=== PATIENT | female | born 1950 | race Two or more races ===

== ENCOUNTER 2019-08-02 09:53 | Inpatient (IN) | payer OTHER ==
[~2019-08-02] VITALS: Ht 157.5 cm; Wt 66.6 kg
[2019-08-02 10:55] LABS: Basophils # (auto) 0.1 10 ^3/uL (0-0.2); Basophils % (auto) 0.7 % (0.0-2.0); Eosinophils # (auto) 0.3 10 ^3/uL (0-0.8); Eosinophils % (auto) 3.9 % (0.0-7.0); Hematocrit 48.4 % (36.0-46.0); Hemoglobin 15.9 g/dL (12.2-16.2); Lymphocytes % (auto) 23.6 % (10.0-50.0); Mean Corpuscular Hemoglobin 28.4 pg (28.0-32.0); Mean Corpuscular Hgb Conc. 32.9 g/dL (32.0-36.0); Mean Corpuscular Volume 86.4 fL (80.0-100.0); Monocytes # (auto) 0.6 10 ^3/uL (0-1.3); Monocytes % (auto) 7.2 % (0.0-12.0); Neutrophils # (auto) 5.6 10 ^3/uL (1.6-8.6); Neutrophils % (auto) 64.6 % (37.0-80.0); Nucleated Red Blood Cells % 0.1 %; Platelet Count (auto) 266 10^3/uL (140-450); Red Cell Distribution Width 15.9 % (11.8-14.3); White Blood Cell 8.6 10^3/uL (4.4-10.8)
[2019-08-02 11:37] LABS: Albumin 3.8 g/dL (3.4-5.0); Anion Gap 8 (5-15); Calcium 9.1 mg/dL (8.5-10.1); Carbon Dioxide 24 mmol/L (21-32); Chloride 110 mmol/L (98-107); GFR African American 58 mL/min; GFR Non-African American 48 mL/min; Glucose 115 mg/dL (74-106); Magnesium 2.3 mg/dL (1.6-2.6); Potassium 3.6 mmol/L (3.5-5.1); Sodium 142 mmol/L (136-145)
[2019-08-02 12:02] LABS: Alanine Aminotransferase 15 U/L (13-56); Alkaline Phosphatase 86 U/L (45-117); Aspartate Aminotransferase 13 U/L (15-37); BUN/Creatinine Ratio 19.3; Blood Urea Nitrogen 23 mg/dL (7-18); Total Protein 8.1 g/dL (6.4-8.2)
[2019-08-02] MEDS ORDERED: SODIUM CHLORIDE 0.9% 1,000 ML IVB ONE (13:02)
[2019-08-02] MEDS ORDERED: ONDANSETRON HCL 4 MG/2 ML VIAL IV ONE (13:15)
[2019-08-02 13:37] LABS: Amylase 129 U/L (25-115); Lipase 69 U/L (73-393)
[2019-08-02] MEDS ORDERED: cefTRIAXone 1GM/50ML D5W 50 ML IV ONE (18:30)
[2019-08-02] MEDS ORDERED: NITROGLYCERIN 0.4 MG SL TAB SL PRN ×2 (18:45→21:00)
[2019-08-02] MEDS ORDERED: MORPHINE SULF INJ 2 MG/ML SYRINGE 1ML IV PRN ×2 (18:45→21:00)
[2019-08-02 19:05] LABS: Urine Bacteria MANY /hpf (None Seen); Urine Blood TRACE /uL (Negative); Urine Hyaline Cast MANY /lpf (0 - 2); Urine Mucus MODERATE (None Seen); Urine Specific Gravity 1.024 (1.001-1.035); Urine WBC 79 /hpf (0 - 5)
[2019-08-02] MEDS: D5W/SOD CHLO 0.9% 1,000 ML IV SCH (20:40)
[2019-08-02 20:50] VITALS: BP 119/69
[2019-08-02] MEDS ORDERED: ALUM & MAG HYDROX-SIMETH LIQ(MAALOX) 30 ML PO PRN (21:00)
[2019-08-02] MEDS ORDERED: LORazepam 0.5 MG TAB PO PRN (21:00)
[2019-08-02] MEDS ORDERED: DOCUSATE SOD 100 MG CAP PO PRN (21:00)
[2019-08-02] MEDS ORDERED: PANTOPRAZOLE 40 MG/10 ML VIAL INJ IV ONE (21:00)
[2019-08-02] MEDS: PANCREATIC ENZYMES 4200 UNIT CAP PO ONE (21:00)
[2019-08-02 21:15] LABS: Cholesterol 169 mg/dL (< 200)
[2019-08-02 21:18] LABS: HDL Cholesterol 41 mg/dL (40-59); LDL Cholesterol 126 mg/dL (< 100); Triglycerides 116 mg/dL (< 150)
[2019-08-02] MEDS ORDERED: PREG75CA PO (21:34)
[2019-08-02] MEDS ORDERED: LEV100T PO (21:34)
[2019-08-02] MEDS ORDERED: LISI-275 PO (21:34)
[2019-08-02] MEDS ORDERED: OME20T PO (21:34)
[2019-08-02] MEDS: MORPHINE SULF INJ 2 MG/ML SYRINGE 1ML IV PRN (21:37)
[2019-08-02 22:00] VITALS: BP 109/66
[2019-08-02] MEDS ORDERED: PNEUMOCOCCAL VACC POLYS 25 MCG/0.5 ML VIAL IM ONE (22:00)
[2019-08-02] MEDS: HYDROcodone-ACET 5/325MG TAB PO PRN (23:28)
[2019-08-03] MEDS: MORPHINE SULF INJ 2 MG/ML SYRINGE 1ML IV PRN ×4 (04:55→19:37)
[2019-08-03 05:00] VITALS: BP 106/57
[2019-08-03] MEDS: PANCREATIC ENZYMES 4200 UNIT CAP PO ONE (05:01)
[2019-08-03] MEDS: LEVOTHYROXINE SODIUM 100 MCG TAB PO SCH (05:02)
[2019-08-03 06:22] LABS: Basophils # (auto) 0 10 ^3/uL (0-0.2); Basophils % (auto) 0.6 % (0.0-2.0); Eosinophils # (auto) 0.6 10 ^3/uL (0-0.8); Eosinophils % (auto) 9.4 % (0.0-7.0); Hematocrit 41.3 % (36.0-46.0); Hemoglobin 13.7 g/dL (12.2-16.2); Lymphocytes # (auto) 2.5 10 ^3/uL (0.4-5.4); Lymphocytes % (auto) 37.6 % (10.0-50.0); Mean Corpuscular Hemoglobin 28.7 pg (28.0-32.0); Mean Corpuscular Hgb Conc. 33.1 g/dL (32.0-36.0); Mean Corpuscular Volume 86.8 fL (80.0-100.0); Monocytes # (auto) 0.6 10 ^3/uL (0-1.3); Monocytes % (auto) 9.2 % (0.0-12.0); Neutrophils # (auto) 2.8 10 ^3/uL (1.6-8.6); Neutrophils % (auto) 43.2 % (37.0-80.0); Nucleated Red Blood Cells % 0.2 %; Platelet Count (auto) 210 10^3/uL (140-450); Red Blood Cells 4.75 10^6/uL (4.0-5.20); Red Cell Distribution Width 15.7 % (11.8-14.3); White Blood Cell 6.6 10^3/uL (4.4-10.8)
[2019-08-03 06:44] LABS: INR 1.17 (0.9-1.15); Potassium 3.9 mmol/L (3.5-5.1)
[2019-08-03 06:59] LABS: BUN/Creatinine Ratio 21.4; Bilirubin, Total 0.5 mg/dL (0.2-1.0); Calcium 8.2 mg/dL (8.5-10.1); Magnesium 2.3 mg/dL (1.6-2.6); Phosphorus 4.1 mg/dL (2.5-4.90); Total Protein 6.3 g/dL (6.4-8.2)
[2019-08-03] MEDS: PANCREATIC ENZYMES 4200 UNIT CAP PO SCH ×3 (08:00→17:48)
[2019-08-03] MEDS: D5W/SOD CHLO 0.9% 1,000 ML IV SCH ×2 (08:35→21:11)
[2019-08-03 09:00] VITALS: BP 103/58
[2019-08-03] MEDS: LISINOPRIL 5 MG TAB PO SCH (10:00)
[2019-08-03] MEDS: ENOXAPARIN SOD 40 MG/0.4 ML SYRINGE SC SCH (10:14)
[2019-08-03] MEDS: PANTOPRAZOLE 40 MG/10 ML VIAL INJ IV SCH (10:14)
[2019-08-03] MEDS: PREGABALIN CAPSULE 75 MG CAP PO SCH ×2 (10:14→21:10)
[2019-08-03] MEDS ORDERED: cefTRIAXone 1GM/50ML D5W 50 ML IV ONE (12:00)
[2019-08-03 13:00] VITALS: BP 100/62
[2019-08-03] MEDS: metroNIDAZOLE 500MG/100ML 100 ML IV SCH ×2 (13:51→21:10)
[2019-08-03] MEDS ORDERED: HYDR-531 PO (14:22)
[2019-08-03 17:00] VITALS: BP 111/63
[2019-08-03] MEDS: ATORVASTATIN 20 MG TAB PO SCH (21:10)
[2019-08-03] MEDS: HYDROcodone-ACET 5/325MG TAB PO PRN (21:11)
[2019-08-03 22:34] VITALS: BP 99/68
[2019-08-04 05:14] VITALS: BP 103/71
[2019-08-04] MEDS: LEVOTHYROXINE SODIUM 100 MCG TAB PO SCH (05:43)
[2019-08-04] MEDS: metroNIDAZOLE 500MG/100ML 100 ML IV SCH ×3 (05:43→22:00)
[2019-08-04] MEDS: MORPHINE SULF INJ 2 MG/ML SYRINGE 1ML IV PRN ×2 (05:44)
[2019-08-04] MEDS: PANCREATIC ENZYMES 4200 UNIT CAP PO SCH ×3 (08:00→18:16)
[2019-08-04 09:00] VITALS: BP 111/58
[2019-08-04] MEDS: PREGABALIN CAPSULE 75 MG CAP PO SCH ×2 (09:49→23:22)
[2019-08-04] MEDS: cefTRIAXone 1GM/50ML D5W 50 ML IV SCH (09:49)
[2019-08-04] MEDS: PANTOPRAZOLE 40 MG/10 ML VIAL INJ IV SCH (09:49)
[2019-08-04] MEDS: LISINOPRIL 5 MG TAB PO SCH (09:58)
[2019-08-04] MEDS: ENOXAPARIN SOD 40 MG/0.4 ML SYRINGE SC SCH (09:59)
[2019-08-04] MEDS: D5W/SOD CHLO 0.9% 1,000 ML IV SCH (09:59)
[2019-08-04] MEDS: HYDROcodone-ACET 5/325MG TAB PO PRN ×2 (12:41→23:36)
[2019-08-04 13:00] VITALS: BP 115/58
[2019-08-04] MEDS: KETOROLAC TROMETH 30 MG/ML 1ML VIAL IV PRN (16:10)
[2019-08-04 17:00] VITALS: BP_SYST 111; BP_SYST 93; BP_DIAS 43; BP_DIAS 58
[2019-08-04 22:00] VITALS: BP 106/67
[2019-08-04] MEDS: ATORVASTATIN 20 MG TAB PO SCH (22:00)
[2019-08-05] MEDS: HYDROcodone-ACET 5/325MG TAB PO PRN ×5 (03:23→20:33)
[2019-08-05 05:00] VITALS: BP 111/55
[2019-08-05] MEDS: metroNIDAZOLE 500MG/100ML 100 ML IV SCH ×3 (06:00→22:00)
[2019-08-05] MEDS: LEVOTHYROXINE SODIUM 100 MCG TAB PO SCH (06:27)
[2019-08-05] MEDS: cefTRIAXone 1GM/50ML D5W 50 ML IV SCH (08:13)
[2019-08-05] MEDS: KETOROLAC TROMETH 30 MG/ML 1ML VIAL IV PRN (08:14)
[2019-08-05] MEDS: PANCREATIC ENZYMES 4200 UNIT CAP PO SCH ×3 (08:14→17:52)
[2019-08-05 09:00] VITALS: BP 102/46
[2019-08-05] MEDS: LISINOPRIL 5 MG TAB PO SCH (10:00)
[2019-08-05] MEDS: PREGABALIN CAPSULE 75 MG CAP PO SCH ×2 (10:16→22:00)
[2019-08-05] MEDS: PANTOPRAZOLE 40 MG/10 ML VIAL INJ IV SCH (10:16)
[2019-08-05] MEDS: ENOXAPARIN SOD 40 MG/0.4 ML SYRINGE SC SCH (10:17)
[2019-08-05] MEDS: D5W/SOD CHLO 0.9% 1,000 ML IV SCH (12:58)
[2019-08-05 13:00] VITALS: BP 111/49
[2019-08-05 17:38] VITALS: BP 147/59
[2019-08-05 22:00] VITALS: BP 122/66
[2019-08-05] MEDS: ATORVASTATIN 20 MG TAB PO SCH (22:00)
[2019-08-06] MEDS: HYDROcodone-ACET 5/325MG TAB PO PRN ×3 (00:59→06:33)
[2019-08-06] MEDS: D5W/SOD CHLO 0.9% 1,000 ML IV SCH ×3 (03:15→21:27)
[2019-08-06 05:38] VITALS: BP 131/59
[2019-08-06] MEDS: metroNIDAZOLE 500MG/100ML 100 ML IV SCH ×3 (06:00→21:26)
[2019-08-06] MEDS: LEVOTHYROXINE SODIUM 100 MCG TAB PO SCH (06:32)
[2019-08-06] MEDS: PANCREATIC ENZYMES 4200 UNIT CAP PO SCH ×3 (08:20→17:58)
[2019-08-06] MEDS: cefTRIAXone 1GM/50ML D5W 50 ML IV SCH (08:30)
[2019-08-06 09:00] VITALS: BP 124/68
[2019-08-06] MEDS: PANTOPRAZOLE 40 MG/10 ML VIAL INJ IV SCH (09:53)
[2019-08-06] MEDS: KETOROLAC TROMETH 30 MG/ML 1ML VIAL IV PRN ×2 (09:53→20:14)
[2019-08-06] MEDS: LISINOPRIL 5 MG TAB PO SCH (09:54)
[2019-08-06] MEDS: PREGABALIN CAPSULE 75 MG CAP PO SCH ×2 (09:54→21:27)
[2019-08-06] MEDS: ENOXAPARIN SOD 40 MG/0.4 ML SYRINGE SC SCH ×2 (09:54→10:00)
[2019-08-06 13:00] VITALS: BP 122/72
[2019-08-06 17:00] VITALS: BP 133/70
[2019-08-06 21:19] LABS: Basophils # (auto) 0 10 ^3/uL (0-0.2); Basophils % (auto) 0.8 % (0.0-2.0); Eosinophils # (auto) 0.4 10 ^3/uL (0-0.8); Eosinophils % (auto) 6.6 % (0.0-7.0); Hematocrit 39.3 % (36.0-46.0); Hemoglobin 12.6 g/dL (12.2-16.2); Lymphocytes # (auto) 1.4 10 ^3/uL (0.4-5.4); Lymphocytes % (auto) 23.9 % (10.0-50.0); Mean Corpuscular Hemoglobin 28.6 pg (28.0-32.0); Mean Corpuscular Hgb Conc. 32.1 g/dL (32.0-36.0); Mean Corpuscular Volume 88.9 fL (80.0-100.0); Monocytes # (auto) 0.6 10 ^3/uL (0-1.3); Monocytes % (auto) 10.8 % (0.0-12.0); Neutrophils # (auto) 3.3 10 ^3/uL (1.6-8.6); Neutrophils % (auto) 57.9 % (37.0-80.0); Nucleated Red Blood Cells % 0.1 %; Platelet Count (auto) 164 10^3/uL (140-450); Red Blood Cells 4.42 10^6/uL (4.0-5.20); Red Cell Distribution Width 16.7 % (11.8-14.3); White Blood Cell 5.7 10^3/uL (4.4-10.8)
[2019-08-06] MEDS: ATORVASTATIN 20 MG TAB PO SCH (21:27)
[2019-08-06 21:34] LABS: INR 1.34 (0.9-1.15); Partial Thromboplastin Time 31.6 sec (23.64-32.05)
[2019-08-06 21:42] LABS: BUN/Creatinine Ratio 9.1; Calcium 7.6 mg/dL (8.5-10.1)
[2019-08-06 21:59] LABS: Potassium 2.4 mmol/L (3.5-5.1)
[2019-08-06 22:00] VITALS: BP 142/87
[2019-08-06 23:02] LABS: BUN/Creatinine Ratio 8.2; Calcium 7.6 mg/dL (8.5-10.1); Potassium 4.9 mmol/L (3.5-5.1)
[2019-08-07 05:00] VITALS: BP 140/72
[2019-08-07] MEDS: metroNIDAZOLE 500MG/100ML 100 ML IV SCH ×3 (05:00→22:05)
[2019-08-07] MEDS: MORPHINE SULF INJ 2 MG/ML SYRINGE 1ML IV PRN (05:00)
[2019-08-07] MEDS: LEVOTHYROXINE SODIUM 100 MCG TAB PO SCH (06:09)
[2019-08-07] MEDS ORDERED: IOHEXOL 300 MG/ML 100ML BOTTLE IJ ONE (07:03)
[2019-08-07] MEDS ORDERED: LIDOCAINE 1% HCL (LOCAL ANESTH.) INJ 20ML MDV ONE (07:42)
[2019-08-07] MEDS ORDERED: SUCCINYLCHOLINE CHLORIDE 20 MG/ML 10ML VIAL IV ONE (07:43)
[2019-08-07] MEDS ORDERED: MIDAZOLAM HCL 1MG/1ML-2 ML VIAL ONE (07:45)
[2019-08-07] MEDS ORDERED: PROPOFOL 10 MG/ML 20 ML IV ONE ×3 (07:46→08:18)
[2019-08-07] MEDS ORDERED: METOCLOPRAMIDE HCL 5MG/ml INJ 2ml VIAL ONE (07:51)
[2019-08-07] MEDS ORDERED: GLYCOPYRROLATE 0.2 MG/ML 1ML VIAL ONE (07:51)
[2019-08-07] MEDS ORDERED: diphenhdrAMINE HCL 50 MG/1 ML VL ONE (07:51)
[2019-08-07] MEDS ORDERED: ESMOLOL HCL 10 ML IV ONE (07:57)
[2019-08-07] MEDS: PANCREATIC ENZYMES 4200 UNIT CAP PO SCH ×3 (08:00→18:12)
[2019-08-07] MEDS ORDERED: HYDROmorphone HCL 2 MG/ML VL IV PRN ×2 (08:15)
[2019-08-07] MEDS ORDERED: ONDANSETRON HCL 4 MG/2 ML VIAL IV PRN (08:15)
[2019-08-07] MEDS ORDERED: NALOXONE HCL 0.4 MG/ML VIAL IV PRN (08:15)
[2019-08-07 09:20] VITALS: BP 133/98
[2019-08-07] MEDS: cefTRIAXone 1GM/50ML D5W 50 ML IV SCH (10:28)
[2019-08-07] MEDS: PANTOPRAZOLE 40 MG/10 ML VIAL INJ IV SCH (10:28)
[2019-08-07] MEDS: ENOXAPARIN SOD 40 MG/0.4 ML SYRINGE SC SCH (10:29)
[2019-08-07] MEDS: LISINOPRIL 5 MG TAB PO SCH (10:29)
[2019-08-07] MEDS: PREGABALIN CAPSULE 75 MG CAP PO SCH ×2 (12:04→22:06)
[2019-08-07 13:00] VITALS: BP 148/101
[2019-08-07 17:00] VITALS: BP 159/85
[2019-08-07] MEDS: KETOROLAC TROMETH 30 MG/ML 1ML VIAL IV PRN (18:21)
[2019-08-07] MEDS: D5W/SOD CHLO 0.9% 1,000 ML IV SCH (18:49)
[2019-08-07 22:00] VITALS: BP 121/59
[2019-08-07] MEDS: ATORVASTATIN 20 MG TAB PO SCH (22:05)
[2019-08-08 05:20] VITALS: BP 125/72
[2019-08-08 06:07] LABS: Basophils # (auto) 0 10 ^3/uL (0-0.2); Basophils % (auto) 0.5 % (0.0-2.0); Eosinophils # (auto) 0.3 10 ^3/uL (0-0.8); Eosinophils % (auto) 4.1 % (0.0-7.0); Hematocrit 37.8 % (36.0-46.0); Hemoglobin 12.5 g/dL (12.2-16.2); Lymphocytes # (auto) 1.4 10 ^3/uL (0.4-5.4); Lymphocytes % (auto) 19.7 % (10.0-50.0); Mean Corpuscular Hemoglobin 28.5 pg (28.0-32.0); Mean Corpuscular Hgb Conc. 33.1 g/dL (32.0-36.0); Mean Corpuscular Volume 86.2 fL (80.0-100.0); Monocytes # (auto) 0.6 10 ^3/uL (0-1.3); Monocytes % (auto) 8.1 % (0.0-12.0); Neutrophils % (auto) 67.6 % (37.0-80.0); Nucleated Red Blood Cells % 0.1 %; Platelet Count (auto) 188 10^3/uL (140-450); Red Blood Cells 4.39 10^6/uL (4.0-5.20); Red Cell Distribution Width 16.2 % (11.8-14.3); White Blood Cell 7.4 10^3/uL (4.4-10.8)
[2019-08-08] MEDS: LEVOTHYROXINE SODIUM 100 MCG TAB PO SCH (06:20)
[2019-08-08] MEDS: metroNIDAZOLE 500MG/100ML 100 ML IV SCH ×3 (06:20→21:31)
[2019-08-08 06:38] LABS: Bilirubin, Total 0.4 mg/dL (0.2-1.0)
[2019-08-08] MEDS: D5W/SOD CHLO 0.9% 1,000 ML IV SCH (08:35)
[2019-08-08] MEDS: PANCREATIC ENZYMES 4200 UNIT CAP PO SCH ×3 (08:43→17:47)
[2019-08-08 08:59] VITALS: BP 123/78
[2019-08-08] MEDS: LISINOPRIL 5 MG TAB PO SCH (10:03)
[2019-08-08] MEDS: cefTRIAXone 1GM/50ML D5W 50 ML IV SCH (10:03)
[2019-08-08] MEDS: ENOXAPARIN SOD 40 MG/0.4 ML SYRINGE SC SCH (10:04)
[2019-08-08] MEDS: PANTOPRAZOLE 40 MG/10 ML VIAL INJ IV SCH (10:04)
[2019-08-08] MEDS: PREGABALIN CAPSULE 75 MG CAP PO SCH ×2 (10:05→21:31)
[2019-08-08] MEDS: KETOROLAC TROMETH 30 MG/ML 1ML VIAL IV PRN ×2 (10:05→21:32)
[2019-08-08] MEDS: SODIUM CHLORIDE 0.9% 1,000 ML IV SCH ×2 (12:40→20:40)
[2019-08-08 13:00] VITALS: BP 125/70
[2019-08-08 17:00] VITALS: BP 131/71
[2019-08-08] MEDS: ATORVASTATIN 20 MG TAB PO SCH (21:31)
[2019-08-08 22:00] VITALS: BP 131/78
[2019-08-09 05:52] VITALS: BP 148/76
[2019-08-09] MEDS: SODIUM CHLORIDE 0.9% 1,000 ML IV SCH ×3 (06:06→21:44)
[2019-08-09] MEDS: metroNIDAZOLE 500MG/100ML 100 ML IV SCH ×3 (06:06→21:44)
[2019-08-09] MEDS: LEVOTHYROXINE SODIUM 100 MCG TAB PO SCH (06:07)
[2019-08-09 06:12] LABS: Basophils # (auto) 0 10 ^3/uL (0-0.2); Basophils % (auto) 0.5 % (0.0-2.0); Eosinophils # (auto) 0.4 10 ^3/uL (0-0.8); Eosinophils % (auto) 7.7 % (0.0-7.0); Hematocrit 38.3 % (36.0-46.0); Hemoglobin 12.8 g/dL (12.2-16.2); Lymphocytes # (auto) 1.7 10 ^3/uL (0.4-5.4); Lymphocytes % (auto) 30.8 % (10.0-50.0); Mean Corpuscular Hemoglobin 28.9 pg (28.0-32.0); Mean Corpuscular Hgb Conc. 33.4 g/dL (32.0-36.0); Mean Corpuscular Volume 86.4 fL (80.0-100.0); Monocytes # (auto) 0.5 10 ^3/uL (0-1.3); Monocytes % (auto) 9.7 % (0.0-12.0); Neutrophils # (auto) 2.8 10 ^3/uL (1.6-8.6); Neutrophils % (auto) 51.3 % (37.0-80.0); Platelet Count (auto) 191 10^3/uL (140-450); Red Blood Cells 4.44 10^6/uL (4.0-5.20); Red Cell Distribution Width 16.2 % (11.8-14.3); White Blood Cell 5.5 10^3/uL (4.4-10.8)
[2019-08-09 06:31] LABS: Albumin 2.4 g/dL (3.4-5.0); Potassium 3.8 mmol/L (3.5-5.1)
[2019-08-09 06:39] LABS: BUN/Creatinine Ratio 6.3; Bilirubin, Total 0.4 mg/dL (0.2-1.0); Total Protein 5.3 g/dL (6.4-8.2)
[2019-08-09] MEDS ORDERED: POVIDONE IODINE 10 % TOPICAL OINT 30GM TOP ONE (06:59)
[2019-08-09] MEDS: PANCREATIC ENZYMES 4200 UNIT CAP PO SCH ×3 (08:00→17:49)
[2019-08-09] MEDS ORDERED: ETOMIDATE (2MG/ML) 20ML VIAL IV ONE (08:05)
[2019-08-09] MEDS ORDERED: ROCURONIUM 10MG/ML 10ML VIAL IV ONE (08:05)
[2019-08-09] MEDS ORDERED: LIDOCAINE 2% (LOCAL ANESTH.) PF 5ml SDV ONE (08:05)
[2019-08-09] MEDS ORDERED: ceFAZolin 1GM/50ML 50 ML IV ONE (08:22)
[2019-08-09 09:00] VITALS: BP 139/71
[2019-08-09] MEDS ORDERED: SUCCINYLCHOLINE CHLORIDE 20 MG/ML 10ML VIAL IV ONE (09:10)
[2019-08-09] MEDS ORDERED: MIDAZOLAM HCL 1MG/1ML-2 ML VIAL ONE ×2 (09:19→09:24)
[2019-08-09] MEDS: PANTOPRAZOLE 40 MG/10 ML VIAL INJ IV SCH (11:28)
[2019-08-09] MEDS: PREGABALIN CAPSULE 75 MG CAP PO SCH ×2 (11:28→21:44)
[2019-08-09] MEDS: cefTRIAXone 1GM/50ML D5W 50 ML IV SCH (11:28)
[2019-08-09] MEDS: LISINOPRIL 5 MG TAB PO SCH (11:29)
[2019-08-09] MEDS: ENOXAPARIN SOD 40 MG/0.4 ML SYRINGE SC SCH (11:29)
[2019-08-09 13:00] VITALS: BP 156/85
[2019-08-09] MEDS: ONDANSETRON HCL 4 MG/2 ML VIAL IV PRN ×3 (13:30→21:45)
[2019-08-09] MEDS: MAGNESIUM SULFATE 1GM/100ML 100 ML IV SCH ×2 (15:00→17:18)
[2019-08-09 16:42] VITALS: BP 150/70
[2019-08-09] MEDS ORDERED: SODIUM CHLORIDE 0.9% 500 ML IV ONE (18:45)
[2019-08-09] MEDS ORDERED: MAGNESIUM SULFATE 1GM/100ML 100 ML IV SCH (19:00)
[2019-08-09] MEDS ORDERED: DIGOXIN (250MCG/ML) 2 ML AMPULE IV ONE ×2 (19:30→20:15)
[2019-08-09] MEDS ORDERED: AMIODARONE HCL 200 MG TAB ONE (19:34)
[2019-08-09] MEDS ORDERED: DIGOXIN (250MCG/ML) 2 ML AMPULE ONE (19:35)
[2019-08-09] MEDS: ATORVASTATIN 20 MG TAB PO SCH (21:44)
[2019-08-09] MEDS: MORPHINE SULF INJ 2 MG/ML SYRINGE 1ML IV PRN (21:45)
[2019-08-09 22:00] VITALS: BP 145/71
[2019-08-09] MEDS ORDERED: AMIODARONE HCL 200 MG TAB PO SCH (22:00)
[2019-08-10] MEDS: ONDANSETRON HCL 4 MG/2 ML VIAL IV PRN ×3 (02:49→15:02)
[2019-08-10] MEDS: MORPHINE SULF INJ 2 MG/ML SYRINGE 1ML IV PRN ×3 (02:50→15:02)
[2019-08-10 05:00] VITALS: BP 121/78
[2019-08-10] MEDS: metroNIDAZOLE 500MG/100ML 100 ML IV SCH ×3 (06:38→21:32)
[2019-08-10] MEDS: LEVOTHYROXINE SODIUM 100 MCG TAB PO SCH (06:38)
[2019-08-10] MEDS: SODIUM CHLORIDE 0.9% 1,000 ML IV SCH ×3 (06:38→21:32)
[2019-08-10] MEDS: ACETAMINOPHEN 325 MG TAB PO PRN ×2 (06:39→16:02)
[2019-08-10 07:08] LABS: Basophils # (auto) 0 10 ^3/uL (0-0.2); Basophils % (auto) 0.3 % (0.0-2.0); Eosinophils # (auto) 0.2 10 ^3/uL (0-0.8); Hematocrit 36.5 % (36.0-46.0); Hemoglobin 12.2 g/dL (12.2-16.2); Lymphocytes # (auto) 1.4 10 ^3/uL (0.4-5.4); Lymphocytes % (auto) 17.6 % (10.0-50.0); Mean Corpuscular Hemoglobin 29.2 pg (28.0-32.0); Mean Corpuscular Hgb Conc. 33.5 g/dL (32.0-36.0); Mean Corpuscular Volume 87.1 fL (80.0-100.0); Monocytes # (auto) 0.6 10 ^3/uL (0-1.3); Monocytes % (auto) 7.1 % (0.0-12.0); Neutrophils # (auto) 5.6 10 ^3/uL (1.6-8.6); Nucleated Red Blood Cells % 0.1 %; Platelet Count (auto) 196 10^3/uL (140-450); Red Blood Cells 4.19 10^6/uL (4.0-5.20); Red Cell Distribution Width 16.7 % (11.8-14.3); White Blood Cell 7.7 10^3/uL (4.4-10.8)
[2019-08-10 07:32] LABS: Albumin 2.3 g/dL (3.4-5.0); Calcium 7.4 mg/dL (8.5-10.1); Potassium 3.5 mmol/L (3.5-5.1)
[2019-08-10 07:37] LABS: BUN/Creatinine Ratio 7.4; Bilirubin, Total 0.3 mg/dL (0.2-1.0); Total Protein 5.1 g/dL (6.4-8.2)
[2019-08-10] MEDS: PANCREATIC ENZYMES 4200 UNIT CAP PO SCH ×3 (08:00→17:59)
[2019-08-10] MEDS ORDERED: ADENOSINE 56 MG in GIVE UN-DILUTED 0 ML IV STA (08:12)
[2019-08-10 09:00] VITALS: BP 110/59
[2019-08-10] MEDS: LISINOPRIL 5 MG TAB PO SCH (10:00)
[2019-08-10] MEDS: cefTRIAXone 1GM/50ML D5W 50 ML IV SCH (11:26)
[2019-08-10] MEDS: PREGABALIN CAPSULE 75 MG CAP PO SCH ×2 (11:27→21:32)
[2019-08-10] MEDS: PANTOPRAZOLE 40 MG/10 ML VIAL INJ IV SCH (11:27)
[2019-08-10] MEDS: ENOXAPARIN SOD 40 MG/0.4 ML SYRINGE SC SCH (11:27)
[2019-08-10 13:00] VITALS: BP 119/69
[2019-08-10] MEDS ORDERED: IBUPROFEN 600 MG TAB PO PRN (16:15)
[2019-08-10 16:52] VITALS: BP 126/68
[2019-08-10] MEDS: ATORVASTATIN 20 MG TAB PO SCH (21:32)
[2019-08-10] MEDS: HYDROcodone-ACET 5/325MG TAB PO PRN (21:52)
[2019-08-10 22:00] VITALS: BP 123/55
[2019-08-11] MEDS: HYDROcodone-ACET 5/325MG TAB PO PRN (03:28)
[2019-08-11 05:00] VITALS: BP 98/50
[2019-08-11] MEDS: SODIUM CHLORIDE 0.9% 1,000 ML IV SCH ×3 (05:45→21:52)
[2019-08-11] MEDS: LEVOTHYROXINE SODIUM 100 MCG TAB PO SCH (05:45)
[2019-08-11] MEDS: metroNIDAZOLE 500MG/100ML 100 ML IV SCH ×3 (05:45→21:52)
[2019-08-11 06:10] LABS: Basophils # (auto) 0 10 ^3/uL (0-0.2); Basophils % (auto) 0.3 % (0.0-2.0); Eosinophils # (auto) 0.2 10 ^3/uL (0-0.8); Hematocrit 33.5 % (36.0-46.0); Lymphocytes # (auto) 1.7 10 ^3/uL (0.4-5.4); Mean Corpuscular Hemoglobin 29.1 pg (28.0-32.0); Mean Corpuscular Hgb Conc. 32.8 g/dL (32.0-36.0); Mean Corpuscular Volume 88.7 fL (80.0-100.0); Monocytes # (auto) 0.7 10 ^3/uL (0-1.3); Monocytes % (auto) 11.7 % (0.0-12.0); Neutrophils # (auto) 3.2 10 ^3/uL (1.6-8.6); Nucleated Red Blood Cells % 0.2 %; Platelet Count (auto) 173 10^3/uL (140-450); Red Blood Cells 3.78 10^6/uL (4.0-5.20); Red Cell Distribution Width 16.8 % (11.8-14.3); White Blood Cell 5.8 10^3/uL (4.4-10.8)
[2019-08-11 06:23] LABS: Albumin 2.1 g/dL (3.4-5.0); Calcium 7.5 mg/dL (8.5-10.1); Potassium 3.7 mmol/L (3.5-5.1)
[2019-08-11 06:28] LABS: BUN/Creatinine Ratio 7.5; Bilirubin, Total 0.4 mg/dL (0.2-1.0); Total Protein 4.7 g/dL (6.4-8.2)
[2019-08-11] MEDS: cefTRIAXone 1GM/50ML D5W 50 ML IV SCH (08:36)
[2019-08-11] MEDS: PREGABALIN CAPSULE 75 MG CAP PO SCH ×2 (08:37→21:52)
[2019-08-11] MEDS: ENOXAPARIN SOD 40 MG/0.4 ML SYRINGE SC SCH ×2 (08:37→08:50)
[2019-08-11] MEDS: PANCREATIC ENZYMES 4200 UNIT CAP PO SCH ×3 (08:37→17:32)
[2019-08-11] MEDS: PANTOPRAZOLE 40 MG/10 ML VIAL INJ IV SCH (08:37)
[2019-08-11] MEDS: LISINOPRIL 5 MG TAB PO SCH (08:38)
[2019-08-11 09:00] VITALS: BP 106/55
[2019-08-11 13:00] VITALS: BP 130/70
[2019-08-11 16:08] LABS: Amylase 44 U/L (25-115); Lipase 113 U/L (73-393)
[2019-08-11 17:00] VITALS: BP 114/66
[2019-08-11] MEDS ORDERED: VANCOMYCIN PER PHARMACY 0 MG IV SCH (18:15)
[2019-08-11] MEDS: VANCOMYCIN 1GM/250ML 250 ML IV SCH (19:41)
[2019-08-11] MEDS: ATORVASTATIN 20 MG TAB PO SCH (21:52)
[2019-08-11 22:00] VITALS: BP 132/60
[2019-08-12] MEDS: SODIUM CHLORIDE 0.9% 1,000 ML IV SCH ×3 (04:36→20:40)
[2019-08-12 05:00] VITALS: BP 149/81
[2019-08-12 05:43] LABS: Basophils # (auto) 0 10 ^3/uL (0-0.2); Basophils % (auto) 0.2 % (0.0-2.0); Eosinophils # (auto) 0.1 10 ^3/uL (0-0.8); Eosinophils % (auto) 1.9 % (0.0-7.0); Hematocrit 34.9 % (36.0-46.0); Hemoglobin 11.7 g/dL (12.2-16.2); Lymphocytes # (auto) 1.2 10 ^3/uL (0.4-5.4); Lymphocytes % (auto) 16.5 % (10.0-50.0); Mean Corpuscular Hemoglobin 28.9 pg (28.0-32.0); Mean Corpuscular Hgb Conc. 33.5 g/dL (32.0-36.0); Mean Corpuscular Volume 86.1 fL (80.0-100.0); Monocytes # (auto) 0.5 10 ^3/uL (0-1.3); Monocytes % (auto) 6.7 % (0.0-12.0); Neutrophils # (auto) 5.5 10 ^3/uL (1.6-8.6); Neutrophils % (auto) 74.7 % (37.0-80.0); Platelet Count (auto) 201 10^3/uL (140-450); Red Blood Cells 4.05 10^6/uL (4.0-5.20); Red Cell Distribution Width 15.9 % (11.8-14.3); White Blood Cell 7.3 10^3/uL (4.4-10.8)
[2019-08-12] MEDS: metroNIDAZOLE 500MG/100ML 100 ML IV SCH ×3 (05:53→21:10)
[2019-08-12] MEDS: LEVOTHYROXINE SODIUM 100 MCG TAB PO SCH (05:53)
[2019-08-12 06:02] LABS: Potassium 3.1 mmol/L (3.5-5.1)
[2019-08-12 06:10] LABS: Albumin 2.1 g/dL (3.4-5.0); BUN/Creatinine Ratio 5.6; Bilirubin, Total 0.4 mg/dL (0.2-1.0); Calcium 7.5 mg/dL (8.5-10.1)
[2019-08-12] MEDS: POTASSIUM CHL 20MEQ/100ML 100 ML IV SCH ×2 (07:15→10:23)
[2019-08-12] MEDS ORDERED: fentaNYL CITRATE 100 MCG/2 ML VL ONE (07:17)
[2019-08-12] MEDS ORDERED: SUCCINYLCHOLINE CHLORIDE 20 MG/ML 10ML VIAL IV ONE (07:20)
[2019-08-12] MEDS ORDERED: PROPOFOL 10 MG/ML 20 ML IV ONE (07:23)
[2019-08-12] MEDS ORDERED: ROCURONIUM 10MG/ML 10ML VIAL IV ONE (07:25)
[2019-08-12] MEDS: PANCREATIC ENZYMES 4200 UNIT CAP PO SCH ×3 (08:00→17:35)
[2019-08-12] MEDS ORDERED: MIDAZOLAM HCL 1MG/1ML-2 ML VIAL ONE (08:51)
[2019-08-12] MEDS ORDERED: LABETALOL HCL 5 MG/ML ML 20ML VIAL IV ONE (08:54)
[2019-08-12 09:00] VITALS: BP 142/66
[2019-08-12] MEDS: cefTRIAXone 1GM/50ML D5W 50 ML IV SCH (09:00)
[2019-08-12] MEDS ORDERED: ONDANSETRON HCL 4 MG/2 ML VIAL IV ONE (09:09)
[2019-08-12] MEDS ORDERED: NEOSTIGMINE 1 MG/ML INJ (10mg/10ML VIAL) ONE (09:09)
[2019-08-12] MEDS ORDERED: GLYCOPYRROLATE 0.2 MG/ML 1ML VIAL ONE (09:09)
[2019-08-12] MEDS ORDERED: METOCLOPRAMIDE HCL 5MG/ml INJ 2ml VIAL IV PRN (09:30)
[2019-08-12] MEDS ORDERED: HYDROmorphone HCL 2 MG/ML VL IV PRN (09:30)
[2019-08-12] MEDS: ENOXAPARIN SOD 40 MG/0.4 ML SYRINGE SC SCH (10:00)
[2019-08-12] MEDS: PREGABALIN CAPSULE 75 MG CAP PO SCH ×2 (10:00→21:11)
[2019-08-12] MEDS: LISINOPRIL 5 MG TAB PO SCH (10:00)
[2019-08-12] MEDS: PANTOPRAZOLE 40 MG/10 ML VIAL INJ IV SCH (10:23)
[2019-08-12] MEDS: MORPHINE SULF INJ 2 MG/ML SYRINGE 1ML IV PRN (11:47)
[2019-08-12] MEDS: ONDANSETRON HCL 4 MG/2 ML VIAL IV PRN (11:47)
[2019-08-12 13:00] VITALS: BP 136/74
[2019-08-12] MEDS: VANCOMYCIN 1GM/250ML 250 ML IV SCH (13:41)
[2019-08-12] MEDS ORDERED: METOPROLOL TARTRATE 1MG/1ML-5ML VIAL IV ONE (15:45)
[2019-08-12] MEDS ORDERED: DIGOXIN (250MCG/ML) 2 ML AMPULE IV ONE ×2 (16:15→16:45)
[2019-08-12] MEDS: ACETAMINOPHEN 325 MG TAB PO PRN (16:56)
[2019-08-12 17:00] VITALS: BP 151/88
[2019-08-12] MEDS ORDERED: METOPROLOL SUCCINATE XL 50 MG TAB PO ONE (18:15)
[2019-08-12 18:36] LABS: Urine Bacteria NONE SEEN /hpf (None Seen); Urine Blood Negative /uL (Negative); Urine Specific Gravity 1.006 (1.001-1.035); Urine WBC <1 /hpf (0 - 5)
[2019-08-12] MEDS: AMIODARONE HCL 200 MG TAB PO SCH (21:11)
[2019-08-12] MEDS: ATORVASTATIN 20 MG TAB PO SCH (21:11)
[2019-08-12 22:37] VITALS: BP 134/76
[2019-08-13] MEDS: MORPHINE SULF INJ 2 MG/ML SYRINGE 1ML IV PRN ×4 (00:42→22:39)
[2019-08-13] MEDS: SODIUM CHLORIDE 0.9% 1,000 ML IV SCH ×3 (04:41→20:40)
[2019-08-13 05:00] VITALS: BP 133/83
[2019-08-13] MEDS: LEVOTHYROXINE SODIUM 100 MCG TAB PO SCH (05:25)
[2019-08-13] MEDS: metroNIDAZOLE 500MG/100ML 100 ML IV SCH ×3 (05:25→22:38)
[2019-08-13] MEDS: ACETAMINOPHEN 325 MG TAB PO PRN ×2 (05:27→22:39)
[2019-08-13 06:30] LABS: Basophils # (auto) 0 10 ^3/uL (0-0.2); Basophils % (auto) 0.3 % (0.0-2.0); Eosinophils # (auto) 0.2 10 ^3/uL (0-0.8); Eosinophils % (auto) 1.7 % (0.0-7.0); Hematocrit 37.1 % (36.0-46.0); Hemoglobin 12.3 g/dL (12.2-16.2); Lymphocytes # (auto) 1.8 10 ^3/uL (0.4-5.4); Lymphocytes % (auto) 17.3 % (10.0-50.0); Mean Corpuscular Hemoglobin 28.8 pg (28.0-32.0); Mean Corpuscular Hgb Conc. 33.3 g/dL (32.0-36.0); Mean Corpuscular Volume 86.4 fL (80.0-100.0); Monocytes # (auto) 0.7 10 ^3/uL (0-1.3); Monocytes % (auto) 7.1 % (0.0-12.0); Neutrophils # (auto) 7.5 10 ^3/uL (1.6-8.6); Neutrophils % (auto) 73.6 % (37.0-80.0); Platelet Count (auto) 218 10^3/uL (140-450); Red Blood Cells 4.29 10^6/uL (4.0-5.20); Red Cell Distribution Width 16.5 % (11.8-14.3); White Blood Cell 10.1 10^3/uL (4.4-10.8)
[2019-08-13 06:53] LABS: Potassium 3.9 mmol/L (3.5-5.1)
[2019-08-13 07:00] LABS: Albumin 2.2 g/dL (3.4-5.0); BUN/Creatinine Ratio 3.4; Bilirubin, Total 0.7 mg/dL (0.2-1.0); Calcium 7.7 mg/dL (8.5-10.1); Total Protein 5.5 g/dL (6.4-8.2)
[2019-08-13] MEDS: VANCOMYCIN 1GM/250ML 250 ML IV SCH (07:51)
[2019-08-13] MEDS: PANCREATIC ENZYMES 4200 UNIT CAP PO SCH ×3 (07:51→18:00)
[2019-08-13 09:11] VITALS: BP 131/69
[2019-08-13] MEDS: PANTOPRAZOLE 40 MG/10 ML VIAL INJ IV SCH (09:47)
[2019-08-13] MEDS: PREGABALIN CAPSULE 75 MG CAP PO SCH ×2 (09:47→22:38)
[2019-08-13] MEDS: cefTRIAXone 1GM/50ML D5W 50 ML IV SCH (09:47)
[2019-08-13] MEDS: AMIODARONE HCL 200 MG TAB PO SCH ×2 (09:47→22:38)
[2019-08-13] MEDS: LISINOPRIL 5 MG TAB PO SCH (09:48)
[2019-08-13] MEDS: ENOXAPARIN SOD 40 MG/0.4 ML SYRINGE SC SCH (09:48)
[2019-08-13] MEDS: METOPROLOL SUCCINATE XL 50 MG TAB PO SCH (09:48)
[2019-08-13 12:27] VITALS: BP 124/64
[2019-08-13 16:50] VITALS: BP 112/69
[2019-08-13 21:00] VITALS: BP 142/70
[2019-08-13] MEDS: ATORVASTATIN 20 MG TAB PO SCH (22:38)
[2019-08-14] MEDS: VANCOMYCIN 1GM/250ML 250 ML IV SCH ×2 (02:30→11:59)
[2019-08-14] MEDS: SODIUM CHLORIDE 0.9% 1,000 ML IV SCH ×3 (04:49→22:07)
[2019-08-14 05:23] VITALS: BP 101/58
[2019-08-14] MEDS: metroNIDAZOLE 500MG/100ML 100 ML IV SCH ×3 (06:15→22:07)
[2019-08-14] MEDS: LEVOTHYROXINE SODIUM 100 MCG TAB PO SCH (06:16)
[2019-08-14 09:00] VITALS: BP 140/62
[2019-08-14] MEDS: PANCREATIC ENZYMES 4200 UNIT CAP PO SCH ×3 (09:45→17:39)
[2019-08-14] MEDS: cefTRIAXone 1GM/50ML D5W 50 ML IV SCH (09:45)
[2019-08-14] MEDS: PREGABALIN CAPSULE 75 MG CAP PO SCH ×2 (09:46→22:07)
[2019-08-14] MEDS: PANTOPRAZOLE 40 MG/10 ML VIAL INJ IV SCH (09:46)
[2019-08-14] MEDS: ENOXAPARIN SOD 40 MG/0.4 ML SYRINGE SC SCH (09:47)
[2019-08-14] MEDS: METOPROLOL SUCCINATE XL 50 MG TAB PO SCH (10:00)
[2019-08-14] MEDS: AMIODARONE HCL 200 MG TAB PO SCH ×2 (10:01→13:45)
[2019-08-14] MEDS: LISINOPRIL 5 MG TAB PO SCH (10:02)
[2019-08-14 13:00] VITALS: BP 145/61
[2019-08-14] MEDS ORDERED: MORPHINE SULF INJ 2 MG/ML SYRINGE 1ML IV PRN (13:00)
[2019-08-14 17:00] VITALS: BP 119/68
[2019-08-14] MEDS: ACETAMINOPHEN 325 MG TAB PO PRN (17:40)
[2019-08-14 22:00] VITALS: BP 96/56
[2019-08-14] MEDS: ATORVASTATIN 20 MG TAB PO SCH (22:07)
[2019-08-15] MEDS: VANCOMYCIN 1GM/250ML 250 ML IV SCH (00:33)
[2019-08-15] MEDS: SODIUM CHLORIDE 0.9% 1,000 ML IV SCH ×3 (04:40→20:40)
[2019-08-15 05:00] VITALS: BP 123/62
[2019-08-15] MEDS: metroNIDAZOLE 500MG/100ML 100 ML IV SCH ×3 (05:45→21:18)
[2019-08-15] MEDS: LEVOTHYROXINE SODIUM 100 MCG TAB PO SCH (06:28)
[2019-08-15 09:19] VITALS: BP 149/86
[2019-08-15] MEDS: PANTOPRAZOLE 40 MG/10 ML VIAL INJ IV SCH (10:20)
[2019-08-15] MEDS: cefTRIAXone 1GM/50ML D5W 50 ML IV SCH (10:20)
[2019-08-15] MEDS: PANCREATIC ENZYMES 4200 UNIT CAP PO SCH ×3 (10:20→18:19)
[2019-08-15] MEDS: METOPROLOL SUCCINATE XL 50 MG TAB PO SCH (10:21)
[2019-08-15] MEDS: PREGABALIN CAPSULE 75 MG CAP PO SCH ×2 (10:21→21:18)
[2019-08-15] MEDS: AMIODARONE HCL 200 MG TAB PO SCH (10:22)
[2019-08-15] MEDS: LISINOPRIL 5 MG TAB PO SCH (10:22)
[2019-08-15 11:09] LABS: Basophils # (auto) 0 10 ^3/uL (0-0.2); Basophils % (auto) 0.4 % (0.0-2.0); Eosinophils # (auto) 0.3 10 ^3/uL (0-0.8); Eosinophils % (auto) 3.6 % (0.0-7.0); Hematocrit 37.7 % (36.0-46.0); Hemoglobin 12.1 g/dL (12.2-16.2); Lymphocytes # (auto) 1.2 10 ^3/uL (0.4-5.4); Mean Corpuscular Hemoglobin 28.5 pg (28.0-32.0); Mean Corpuscular Hgb Conc. 32.2 g/dL (32.0-36.0); Mean Corpuscular Volume 88.4 fL (80.0-100.0); Monocytes # (auto) 0.6 10 ^3/uL (0-1.3); Monocytes % (auto) 6.9 % (0.0-12.0); Neutrophils # (auto) 6.4 10 ^3/uL (1.6-8.6); Neutrophils % (auto) 75.1 % (37.0-80.0); Platelet Count (auto) 250 10^3/uL (140-450); Red Blood Cells 4.27 10^6/uL (4.0-5.20); Red Cell Distribution Width 17.3 % (11.8-14.3); White Blood Cell 8.6 10^3/uL (4.4-10.8)
[2019-08-15 11:16] LABS: BUN/Creatinine Ratio 6.9; Calcium 7.6 mg/dL (8.5-10.1); Potassium 3.2 mmol/L (3.5-5.1)
[2019-08-15 13:03] VITALS: BP 152/67
[2019-08-15 16:40] VITALS: BP 120/83
[2019-08-15] MEDS: ACETAMINOPHEN 325 MG TAB PO PRN (17:02)
[2019-08-15] MEDS: ATORVASTATIN 20 MG TAB PO SCH (21:18)
[2019-08-15 22:00] VITALS: BP 133/62
[2019-08-16 05:00] VITALS: BP 159/71
[2019-08-16] MEDS: metroNIDAZOLE 500MG/100ML 100 ML IV SCH ×2 (06:02→14:32)
[2019-08-16] MEDS: SODIUM CHLORIDE 0.9% 1,000 ML IV SCH ×2 (06:02→12:40)
[2019-08-16] MEDS: LEVOTHYROXINE SODIUM 100 MCG TAB PO SCH (06:02)
[2019-08-16 09:00] VITALS: BP 150/79
[2019-08-16] MEDS: PANTOPRAZOLE 40 MG/10 ML VIAL INJ IV SCH (09:39)
[2019-08-16] MEDS: METOPROLOL SUCCINATE XL 50 MG TAB PO SCH (09:40)
[2019-08-16] MEDS: cefTRIAXone 1GM/50ML D5W 50 ML IV SCH (09:40)
[2019-08-16] MEDS: PREGABALIN CAPSULE 75 MG CAP PO SCH (09:40)
[2019-08-16] MEDS: PANCREATIC ENZYMES 4200 UNIT CAP PO SCH ×2 (09:41→12:51)
[2019-08-16] MEDS: LISINOPRIL 5 MG TAB PO SCH (09:41)
[2019-08-16] MEDS: AMIODARONE HCL 200 MG TAB PO SCH (09:42)
[2019-08-16 13:00] VITALS: BP 149/92
[2019-08-16 17:00] VITALS: BP_SYST 147; BP_SYST 152; BP_DIAS 81
== END 2019-08-16 18:30 | disposition home health service (06) | DRG 417 ==
LOC: ER 09:53 → TELE 09:54 → TELE-WESTW 21:48
PROVIDERS: ADMIT Hospitalist; ATTEND Family Medicine
PROC: BF141ZZ Fluoroscopy of Gallbladder, Bile Ducts and Pancreatic Ducts using Low Osmolar Contrast (ICD-10-PCS; 2019-08-07)
PROC: 0FC98ZZ Extirpation of Matter from Common Bile Duct, Via Natural or Artificial Opening Endoscopic (ICD-10-PCS; 2019-08-07)
PROC: 0F798ZZ Dilation of Common Bile Duct, Via Natural or Artificial Opening Endoscopic (ICD-10-PCS; principal; 2019-08-07 07:42)
PROC: 0FT44ZZ Resection of Gallbladder, Percutaneous Endoscopic Approach (ICD-10-PCS; 2019-08-12)
DX: K80.67 Calculus of gallbladder and bile duct with acute and chronic cholecystitis with obstruction (principal); K85.10 Biliary acute pancreatitis without necrosis or infection; N39.0 Urinary tract infection, site not specified; N17.9 Acute kidney failure, unspecified; R78.81 Bacteremia; K44.9 Diaphragmatic hernia without obstruction or gangrene; K76.0 Fatty (change of) liver, not elsewhere classified; K21.9 Gastro-esophageal reflux disease without esophagitis; N18.2 Chronic kidney disease, stage 2 (mild); M40.204 Unspecified kyphosis, thoracic region; G89.4 Chronic pain syndrome; E03.9 Hypothyroidism, unspecified; I12.9 Hypertensive chronic kidney disease with stage 1 through stage 4 chronic kidney disease, or unspecified chronic kidney disease; E78.5 Hyperlipidemia, unspecified; M19.90 Unspecified osteoarthritis, unspecified site; J44.9 Chronic obstructive pulmonary disease, unspecified; G62.9 Polyneuropathy, unspecified; E78.00 Pure hypercholesterolemia, unspecified; F41.9 Anxiety disorder, unspecified; I48.91 Unspecified atrial fibrillation; I49.3 Ventricular premature depolarization; F32.9 Major depressive disorder, single episode, unspecified; Z90.710 Acquired absence of both cervix and uterus; Z82.49 Family history of ischemic heart disease and other diseases of the circulatory system; Z20.828 Contact with and (suspected) exposure to other viral communicable diseases
CPT/HCPCS: 36415; 71045; 71046; 74018; 74176; 74181; 76000; 76705; 78452; 80048; 80053; 80061; 80202; 81001; 82150; 82247; 82962; 83036; 83690; 83735; 84100; 84443; 84484; 85025; 85610; 85730; 86850; 86860; 86870; 86880; 86900; 86901; 86905; 86906; 86971; 87040; 87077; 87186; 93005; 93017; 93306; 96361; 96365; 96375; C9113; G0378; J0153; J0330; J0690; J0696; J1885; J2001; J2250; J2405; J2704; J3480; J3490; J7042

== ENCOUNTER 2019-12-02 10:20 | Emergency (ER) | payer OTHER ==
[~2019-12-02] VITALS: Ht 160 cm; Wt 62.6 kg
[~2019-12-02 10:20] MED LIST: HYDR-531 PO; LEV100T PO; LISI-275 PO; OME20T PO; PREG75CA PO
[2019-12-02 10:29] VITALS: BP 127/42
== END 2019-12-02 11:16 | disposition home or self-care (01) ==
LOC: ER 10:20
DX: Z48.02 Encounter for removal of sutures (principal); I10 Essential (primary) hypertension; K21.9 Gastro-esophageal reflux disease without esophagitis; Z90.49 Acquired absence of other specified parts of digestive tract; Z90.710 Acquired absence of both cervix and uterus

== ENCOUNTER 2019-12-13 09:21 | Emergency (ER) | payer OTHER ==
[~2019-12-13] VITALS: Ht 160 cm; Wt 62.6 kg
[2019-12-13 09:53] VITALS: BP 156/74
== END 2019-12-13 11:13 | disposition home or self-care (01) ==
LOC: ER 09:21
DX: R21 Rash and other nonspecific skin eruption (principal); Z20.7 Contact with and (suspected) exposure to pediculosis, acariasis and other infestations

== ENCOUNTER 2021-01-11 15:08 | Emergency (ER) | payer OTHER ==
[~2021-01-11] VITALS: Ht 162.6 cm; Wt 58.5 kg
[2021-01-11 15:26] VITALS: BP 179/97
[2021-01-11] MEDS: ACETAMINOPHEN 500 MG TAB PO ONE ×2 (16:01→16:50)
[2021-01-11] MEDS ORDERED: OXYCODONE W/ ACETAMINOPHEN 5/325MG TABLET PO ONE (18:00)
== END 2021-01-12 07:15 | disposition left against medical advice (07) ==
LOC: EDBD 15:08 → ER 15:08
DX: M54.2 Cervicalgia (principal); R07.89 Other chest pain; R51.9 Headache, unspecified; Z53.21 Procedure and treatment not carried out due to patient leaving prior to being seen by health care provider; V89.2XXA Person injured in unspecified motor-vehicle accident, traffic, initial encounter; Y93.89 Activity, other specified; Y92.89 Other specified places as the place of occurrence of the external cause; Y99.8 Other external cause status
CPT/HCPCS: 71045; 72040; 93005

== ENCOUNTER 2022-12-13 07:44 | Inpatient (IN) | payer OTHER ==
[~2022-12-13] VITALS: Ht 162.6 cm; Wt 63.6 kg
[2022-12-13] MEDS ORDERED: cefTRIAXone 1GM/50ML D5W 50 ML IV ONE (08:15)
[2022-12-13] MEDS ORDERED: SODIUM CHLORIDE 0.9% 1,000 ML IV ONE ×2 (08:15)
[2022-12-13] MEDS ORDERED: AZITHROMYCIN 500MG/ 250ML 250 ML IV ONE (08:15)
[2022-12-13 08:30] VITALS: PULSE 173; RESP 24; O2SAT 96
[2022-12-13] MEDS ORDERED: dilTIAZem 25 MG/5 ML VIAL IV ONE ×2 (08:30→09:30)
[2022-12-13 08:58] LABS: INR 1.19 (0.9-1.15); Partial Thromboplastin Time 22.5 SEC (24.5-34.5); Prothrombin Time 12.4 sec (9.3-11.8)
[2022-12-13 09:00] LABS: Alanine Aminotransferase 20 U/L (7-40); Albumin 4.1 g/dL (3.2-4.8); Alkaline Phosphatase 95 U/L (46-116); Anion Gap 10 (5-15); Bilirubin, Total 0.7 mg/dL (0.2-1.0); Blood Urea Nitrogen 60 mg/dL (9-23); Carbon Dioxide 22 mmol/L (20-30); Chloride 108 mmol/L (98-107); Glucose 122 mg/dL (74-106); Potassium 4.2 mmol/L (3.5-5.1); Sodium 140 mmol/L (136-145); Total Protein 6.8 g/dL (5.7-8.2)
[2022-12-13 09:23] LABS: Aspartate Aminotransferase 34 U/L (13-40)
[2022-12-13] MEDS ORDERED: dilTIAZem 125mg/125ml BAG KIT 125 ML IV ONE ×2 (09:24→09:30)
[2022-12-13 09:25] LABS: Urine Bacteria MANY /hpf (None Seen); Urine Blood Negative /uL (Negative); Urine Clarity HAZY (Clear); Urine Color Yellow (Yellow); Urine Mucus MODERATE (None Seen); Urine Protein, UAD TRACE (Negative); Urine WBC 4 /hpf (0 - 5); Urine pH 5.5 (5.0-8.0)
[2022-12-13 09:36] LABS: Basophils # (auto) 0 10 ^3/uL (0-0.2); Basophils % (auto) 0.5 % (0.0-2.0); Eosinophils # (auto) 0.3 10 ^3/uL (0-0.8); Eosinophils % (auto) 3.4 % (0.0-7.0); Hematocrit 48.2 % (36.0-46.0); Hemoglobin 15.8 g/dL (12.2-16.2); Lymphocytes # (auto) 3.9 10 ^3/uL (0.4-5.4); Lymphocytes % (auto) 43.7 % (10.0-50.0); Mean Corpuscular Hemoglobin 30.4 pg (28.0-32.0); Mean Corpuscular Hgb Conc. 32.8 g/dL (32.0-36.0); Mean Corpuscular Volume 92.6 fL (80.0-100.0); Monocytes # (auto) 0.7 10 ^3/uL (0-1.3); Monocytes % (auto) 7.7 % (0.0-12.0); Neutrophils % (auto) 44.7 % (37.0-80.0); Nucleated Red Blood Cells % 0.3 %; Red Blood Cells 5.21 10^6/uL (4.0-5.20); Red Cell Distribution Width 14.3 % (11.8-14.3)
[2022-12-13] MEDS ORDERED: MORPHINE SULFATE INJ 2 MG/ml SYRG IV PRN ×2 (15:30)
[2022-12-13] MEDS ORDERED: NITROGLYCERIN 0.4 MG SL TAB SL PRN (15:30)
[2022-12-13] MEDS ORDERED: ACETAMINOPHEN 325 MG TAB PO PRN (15:30)
[2022-12-13] MEDS ORDERED: ONDANSETRON HCL 4 MG/2 ML VIAL IV PRN (15:30)
[2022-12-13] MEDS: NOREPINEPHRINE 8 MG/250ML KIT 250 ML IV SCH (16:04)
[2022-12-13] MEDS: D5W/SOD CHL 0.45% 1,000 ML IV SCH (18:15)
[2022-12-13 19:25] VITALS: PULSE 104; RESP 18; O2SAT 94
[2022-12-13] MEDS: ENOXAPARIN SOD 80 MG/0.8ML SYRINGE SC SCH (23:00)
[2022-12-13] MEDS: METOPROLOL TARTRATE 25 MG TAB PO SCH (23:00)
[2022-12-13] MEDS: ATORVASTATIN 20 MG TAB PO SCH (23:00)
[2022-12-14] VITALS (8 sets, daily range): BP systolic 101–126; BP diastolic 46–100; PULSE 55–95; RESP 19–22; TEMP 98.2–98.8; O2SAT 94–98
[2022-12-14] MEDS: HYDROcodone-ACET 5/325MG TAB PO PRN (00:36)
[2022-12-14] MEDS: NOREPINEPHRINE 8 MG/250ML KIT 250 ML IV SCH ×2 (00:40→09:35)
[2022-12-14 04:15] LABS: Basophils # (auto) 0 10 ^3/uL (0-0.2); Basophils % (auto) 0.4 % (0.0-2.0); Eosinophils # (auto) 0.5 10 ^3/uL (0-0.8); Eosinophils % (auto) 4.9 % (0.0-7.0); Hematocrit 46.5 % (36.0-46.0); Hemoglobin 15.3 g/dL (12.2-16.2); Lymphocytes # (auto) 2.9 10 ^3/uL (0.4-5.4); Lymphocytes % (auto) 29.9 % (10.0-50.0); Mean Corpuscular Hemoglobin 30.1 pg (28.0-32.0); Mean Corpuscular Hgb Conc. 32.8 g/dL (32.0-36.0); Mean Corpuscular Volume 91.7 fL (80.0-100.0); Monocytes # (auto) 0.7 10 ^3/uL (0-1.3); Monocytes % (auto) 7.5 % (0.0-12.0); Neutrophils # (auto) 5.5 10 ^3/uL (1.6-8.6); Neutrophils % (auto) 57.3 % (37.0-80.0); Nucleated Red Blood Cells % 0.1 %; Red Blood Cells 5.07 10^6/uL (4.0-5.20); Red Cell Distribution Width 14.2 % (11.8-14.3); White Blood Cell 9.7 10^3/uL (4.4-10.8)
[2022-12-14 04:32] LABS: Alanine Aminotransferase 11 U/L (7-40); Alkaline Phosphatase 89 U/L (46-116); Anion Gap 12 (5-15); BUN/Creatinine Ratio 24.2 (10.0-20.0); Calcium 8.3 mg/dL (8.7-10.4); Carbon Dioxide 17 mmol/L (20-30); Chloride 112 mmol/L (98-107); Glucose 143 mg/dL (74-106); Potassium 3.4 mmol/L (3.5-5.1); Sodium 141 mmol/L (136-145)
[2022-12-14 04:33] LABS: Albumin 3.4 g/dL (3.2-4.8); Aspartate Aminotransferase 17 U/L (13-40)
[2022-12-14 04:34] LABS: Total Protein 6.1 g/dL (5.7-8.2)
[2022-12-14 04:38] LABS: Blood Urea Nitrogen 24 mg/dL (9-23)
[2022-12-14] MEDS: D5W/SOD CHL 0.45% 1,000 ML IV SCH ×2 (08:38)
[2022-12-14] MEDS ORDERED: dilTIAZem 125mg/125ml BAG KIT 100 ML IV SCH (08:45)
[2022-12-14] MEDS: cefTRIAXone 1GM/50ML D5W 50 ML IV SCH (09:30)
[2022-12-14] MEDS: ENOXAPARIN SOD 80 MG/0.8ML SYRINGE SC SCH ×2 (10:12→21:13)
[2022-12-14] MEDS: ASPirin 81 mg TAB PO SCH (10:12)
[2022-12-14] MEDS: METOPROLOL TARTRATE 25 MG TAB PO SCH ×2 (10:13→21:14)
[2022-12-14] MEDS: ATORVASTATIN 20 MG TAB PO SCH (21:13)
[2022-12-15] VITALS (26 sets, daily range): BP systolic 92–148; BP diastolic 40–94; PULSE 53–81; RESP 7–19; TEMP 97.5–98.6; O2SAT 94–99
[2022-12-15] MEDS: NOREPINEPHRINE 8 MG/250ML KIT 250 ML IV SCH (08:59)
[2022-12-15] MEDS: ASPirin 81 mg TAB PO SCH (09:03)
[2022-12-15] MEDS: cefTRIAXone 1GM/50ML D5W 50 ML IV SCH (09:03)
[2022-12-15] MEDS: ENOXAPARIN SOD 80 MG/0.8ML SYRINGE SC SCH (09:04)
[2022-12-15] MEDS: METOPROLOL TARTRATE 25 MG TAB PO SCH ×2 (09:04→22:00)
[2022-12-15] MEDS ORDERED: PANTOPRAZOLE 40 MG TAB PO ONE (11:00)
[2022-12-15] MEDS: D5W/SOD CHL 0.45% 1,000 ML IV SCH (13:09)
[2022-12-15] MEDS: ATORVASTATIN 20 MG TAB PO SCH (22:29)
[2022-12-15] MEDS: RIVAROXABAN 20 MG TAB PO SCH (22:30)
[2022-12-16] MEDS: D5W/SOD CHL 0.45% 1,000 ML IV SCH ×2 (04:01→17:22)
[2022-12-16 05:00] VITALS: BP 160/108; PULSE 65; RESP 19; TEMP 98.5; O2SAT 95
[2022-12-16 08:00] VITALS: BP 157/91; PULSE 69; PULSE 76; RESP 17; TEMP 98.4; O2SAT 97
[2022-12-16 09:00] VITALS: BP 157/91; PULSE 76; RESP 17; TEMP 98.4; O2SAT 95; O2SAT 97
[2022-12-16] MEDS: NOREPINEPHRINE 8 MG/250ML KIT 250 ML IV SCH (09:00)
[2022-12-16] MEDS: cefTRIAXone 1GM/50ML D5W 50 ML IV SCH (09:13)
[2022-12-16] MEDS: PANTOPRAZOLE 40 MG TAB PO SCH (09:13)
[2022-12-16] MEDS: METOPROLOL TARTRATE 25 MG TAB PO SCH ×2 (09:14→21:04)
[2022-12-16] MEDS: ASPirin 81 mg TAB PO SCH (09:14)
[2022-12-16] MEDS ORDERED: LEVO88TA4 PO (09:20)
[2022-12-16] MEDS ORDERED: LISI10TA34 PO (09:20)
[2022-12-16] MEDS: HYDROcodone-ACET 5/325MG TAB PO PRN (10:40)
[2022-12-16 13:00] VITALS: BP 134/77; PULSE 55; RESP 19; TEMP 98.5; O2SAT 96
[2022-12-16 17:00] VITALS: BP 136/84; PULSE 56; RESP 18; TEMP 98.3; O2SAT 98
[2022-12-16] MEDS: RIVAROXABAN 20 MG TAB PO SCH (17:21)
[2022-12-16 20:00] VITALS: PULSE 60; PULSE 61; RESP 17; O2SAT 100
[2022-12-16] MEDS: ATORVASTATIN 20 MG TAB PO SCH (20:59)
[2022-12-17 04:53] VITALS: BP 140/91; PULSE 65; RESP 18; TEMP 98.5; O2SAT 97
[2022-12-17 08:00] VITALS: PULSE 66
[2022-12-17] MEDS: D5W/SOD CHL 0.45% 1,000 ML IV SCH (08:42)
[2022-12-17] MEDS: cefTRIAXone 1GM/50ML D5W 50 ML IV SCH (08:43)
[2022-12-17 09:00] VITALS: BP 155/81; PULSE 69; RESP 18; TEMP 98.6; O2SAT 96
[2022-12-17] MEDS: NOREPINEPHRINE 8 MG/250ML KIT 250 ML IV SCH (09:00)
[2022-12-17 09:25] LABS: Hepatitis B Surface Antigen Negative (Negative)
[2022-12-17] MEDS: PANTOPRAZOLE 40 MG TAB PO SCH (09:34)
[2022-12-17] MEDS: ASPirin 81 mg TAB PO SCH (09:34)
[2022-12-17] MEDS: METOPROLOL TARTRATE 25 MG TAB PO SCH (09:35)
[2022-12-17 09:45] LABS: Hepatitis C Antibody Negative (Negative)
[2022-12-17] MEDS ORDERED: ATOR20TA50 PO (10:34)
[2022-12-17] MEDS ORDERED: NITR0.4S29 SL (10:34)
[2022-12-17] MEDS ORDERED: ASPI-325 PO (10:34)
[2022-12-17] MEDS ORDERED: MET25T PO (10:34)
[2022-12-17] MEDS ORDERED: RIV20T PO (10:34)
[2022-12-17] MEDS ORDERED: CEPH500C PO (10:36)
[2022-12-17 11:39] LABS: Basophils # (auto) 0 10 ^3/uL (0-0.2); Basophils % (auto) 0.6 % (0.0-2.0); Eosinophils # (auto) 0.3 10 ^3/uL (0-0.8); Eosinophils % (auto) 4.5 % (0.0-7.0); Hematocrit 37.4 % (36.0-46.0); Hemoglobin 12.4 g/dL (12.2-16.2); Lymphocytes # (auto) 1.6 10 ^3/uL (0.4-5.4); Lymphocytes % (auto) 22.6 % (10.0-50.0); Mean Corpuscular Hemoglobin 30.3 pg (28.0-32.0); Mean Corpuscular Volume 91.7 fL (80.0-100.0); Monocytes # (auto) 0.6 10 ^3/uL (0-1.3); Monocytes % (auto) 8.9 % (0.0-12.0); Neutrophils # (auto) 4.5 10 ^3/uL (1.6-8.6); Neutrophils % (auto) 63.4 % (37.0-80.0); Nucleated Red Blood Cells % 0.1 %; Red Blood Cells 4.08 10^6/uL (4.0-5.20); Red Cell Distribution Width 13.6 % (11.8-14.3)
[2022-12-17 11:55] LABS: Chloride 112 mmol/L (98-107); Potassium 4.1 mmol/L (3.5-5.1); Sodium 140 mmol/L (136-145)
[2022-12-17 11:56] LABS: Anion Gap 5 (5-15); Carbon Dioxide 23 mmol/L (20-30)
[2022-12-17 12:01] LABS: Glucose 122 mg/dL (74-106)
[2022-12-17 12:02] LABS: BUN/Creatinine Ratio 16.9 (10.0-20.0); Blood Urea Nitrogen 11 mg/dL (9-23); Magnesium 1.6 mg/dL (1.6-2.6)
[2022-12-17 12:56] VITALS: BP 136/65; PULSE 55; RESP 16; TEMP 99.1; O2SAT 98
== END 2022-12-17 16:00 | disposition home health service (06) | DRG 281 ==
LOC: EDBD 07:44 → ER 07:44 → TELE 15:23 → TELE-CENTR 15:23 → DOU IN ICU 12-14 15:51 → TELE-CENTR 12-15 23:56
PROVIDERS: ADMIT Internal Medicine; ATTEND Internal Medicine
DX: I48.20 Chronic atrial fibrillation, unspecified (principal); I21.A1 Myocardial infarction type 2; N39.0 Urinary tract infection, site not specified; K21.9 Gastro-esophageal reflux disease without esophagitis; E03.9 Hypothyroidism, unspecified; I10 Essential (primary) hypertension; Z90.49 Acquired absence of other specified parts of digestive tract; Z90.710 Acquired absence of both cervix and uterus
CPT/HCPCS: 36415; 70450; 71045; 80048; 80053; 81001; 83605; 83735; 83880; 84484; 85025; 85610; 85730; 86803; 87040; 87081; 87340; 93306; 96365; 96367; 96368; 96376; 97110; 97116; 97163; 97530; 99291; G0378; J0696

== ENCOUNTER 2023-07-21 08:39 | Inpatient (IN) | payer OTHER ==
[2023-07-21] VITALS (18 sets, daily range): BP systolic 118–155; BP diastolic 47–74; PULSE 63–91; RESP 14–23; TEMP 97.5–98.4; O2SAT 90–100
[~2023-07-21] VITALS: Ht 162.6 cm; Wt 72.1 kg
[~2023-07-21 08:39] MED LIST changes: +ASPI-325 PO; +ATOR20TA50 PO; +DULO60CA41 PO; +FAMO-12 PO; -LEV100T PO; +LEVO88TA4 PO; -LISI-275 PO; +LISI10TA34 PO; +MET25T PO; +MIRT-93 PO; +PREG50CA80 PO; -PREG75CA PO; +RIV20T PO
[2023-07-21] MEDS: VANCOMYCIN 1GM/200ML 200 ML IV ONE (10:20)
[2023-07-21] MEDS: LIDOCAINE 2%HCL (LOCAL ANESTH.) INJ 20ML MDV ONE (10:51)
[2023-07-21] MEDS: VANCOMYCIN HCL 1000 MG VL ONE (10:51)
[2023-07-21] MEDS: fentaNYL CITRATE 100 MCG/2 ML VL ONE ×2 (10:51→11:35)
[2023-07-21] MEDS: MIDAZOLAM HCL 2MG/2ML 2ml VIAL (1mg/ml) ONE ×2 (10:51→11:36)
[2023-07-21] MEDS: IODIXANOL 320MG/ML 100ML BTL IV ONE (11:00)
[2023-07-21] MEDS: hydrALAZINE HCL 20 MG/ML VL ONE (11:14)
[2023-07-21] MEDS: HYDROcodone-ACET 5/325MG TAB PO ONE (12:59)
[2023-07-21] MEDS: HYDROcodone-ACET 5/325MG TAB PO PRN (17:51)
[2023-07-22 05:00] VITALS: BP 137/61; PULSE 73; RESP 18; TEMP 98.4; O2SAT 97
[2023-07-22 07:40] VITALS: PULSE 85
[2023-07-22 08:00] VITALS: PULSE 70
[2023-07-22 09:00] VITALS: BP 131/68; PULSE 71; RESP 17; TEMP 97.9; O2SAT 97
[2023-07-22 11:46] VITALS: TEMP 36.6
== END 2023-07-22 12:25 | disposition home or self-care (01) | DRG 244 ==
LOC: CATH 08:39 → TELE 12:24 → TELE-CENTR 17:42
PROVIDERS: ADMIT Internal Medicine; ATTEND Internal Medicine
PROC: 0JH606Z Insertion of Pacemaker, Dual Chamber into Chest Subcutaneous Tissue and Fascia, Open Approach (ICD-10-PCS; principal; 2023-07-21)
PROC: 02H63JZ Insertion of Pacemaker Lead into Right Atrium, Percutaneous Approach (ICD-10-PCS; 2023-07-21)
PROC: 02HK3JZ Insertion of Pacemaker Lead into Right Ventricle, Percutaneous Approach (ICD-10-PCS; 2023-07-21)
DX: I49.5 Sick sinus syndrome (principal)
CPT/HCPCS: 33208; 71045; 93005; 99152; G0378; J2250; Q9967